=== PATIENT | female | born 1990 | race Caucasian/White ===

== ENCOUNTER → 2018-01-05 10:54 | Outpatient (CLI) | payer SELFPAY ==
[2018-01-05 12:29] LABS: Hematocrit 43.1 % (37-47); Hemoglobin 15.2 g/dl (12.0-15.0); Mean Corp Hgb Conc 35.3 g/gl (32-36); Mean Corpuscular Hgb 30.9 pg (27.0-32.0); Mean Corpuscular Volume 87.6 fL (81-99); Mean Platelet Vol. 10.4 fl (6.2-12.0); Platelet Count 292 K/mm3 (150-450); RBC Distribution Width CV 12.7 % (11.6-14.6); RBC Distribution Width SD 40.2 fl (35.1-43.9); Red Blood Count 4.92 M/mm3 (4.2-5.4); White Blood Count 8.3 K/mm3 (4.4-11.0)
[2018-01-05 12:34] LABS: Scan Indicated on CBC? Y/N NO
[2018-01-05 12:54] LABS: AST(SGOT) 10 U/L (15-37); Alanine Aminotransfer ALT/SGPT 13 U/L (13-56); Albumin, Serum 3.8 g/dL (3.2-5.0); Alkaline Phosphatase 51 U/L (45-117); Anion Gap 5 (5-15); BUN 14 mg/dL (7-18); BUN/Creat Ratio 24.8 RATIO (10-20); Calcium,Total 8.6 mg/dL (8.5-10.1); Chloride 104 mmol/L (98-107); Creatinine, Serum 0.56 mg/dL (0.55-1.02); EST Glomerular Filtration Rate 136 mL/min (>60); Est Glom Filt Rate - Afr Amer 165 mL/min (>60); Globulin 3.8 g/dL (2.2-4.2); Glucose 75 mg/dL (74-106); Magnesium 1.9 mg/dL (1.6-2.6); Phosphorus 2.3 mg/dL (2.5-4.9); Potassium 3.9 mmol/L (3.5-5.1); Protein, Total 7.6 g/dL (6.4-8.2); Sodium Level 137 mmol/L (136-145)
[2018-01-08 12:12] LABS: KEPPRA (LEVETIRACETAM) 23.7 ug/mL (10.0-40.0)
== END ==
PROVIDERS: Visit Provider Nurse Practitioner Acute Care
DX: R56.9 Unspecified convulsions (principal)
CPT/HCPCS: 36415; 80053; 80177; 83735; 84100; 85027

== ENCOUNTER → 2019-03-03 | Outpatient (CLI) | payer SELFPAY ==
[2019-03-03 12:48] LABS: Absolute Lymphocyte Count 1.65 X10^3/ul (0.83-4.51); Absolute Neutrophil Count 4.1 X10^3/uL (2.0-7.7); Basophil# 0.03 X10^3/uL; Basophil% 0.5 % (0-1); Eosinophils% 1.6 % (0-5); Hematocrit 43.4 % (37-47); Lymphocyte # 1.65 X10^3/ul (4.0); Lymphocyte % 26.1 % (19-41); Mean Corp Hgb Conc 34.6 g/gl (32-36); Mean Corpuscular Hgb 30.6 pg (27.0-32.0); Mean Corpuscular Volume 88.6 fL (81-99); Monocyte# 0.44 X10^3/uL; Neutrophil # 4.07 X10^3/uL (2.7-7.7); Neutrophil % 64.5 % (47-70); Platelet Count 285 K/mm3 (150-450); RBC Distribution Width CV 12.5 % (11.6-14.6); RBC Distribution Width SD 40.1 fl (35.1-43.9); White Blood Count 6.3 K/mm3 (4.4-11.0)
[2019-03-03 12:51] LABS: POSITIVE COUNT NO; POSITIVE DIFFERENTIAL NO; POSITIVE MORPHOLOGY NO
[2019-03-03 13:17] LABS: ALB/GLOB Ratio 1.2 RATIO (0.9-2.4); AST(SGOT) 11 U/L (15-37); Alanine Aminotransfer ALT/SGPT 16 U/L (13-56); Albumin, Serum 4.1 g/dL (3.2-5.0); Alkaline Phosphatase 63 U/L (45-117); Anion Gap 4 (5-15); BUN 10 mg/dL (7-18); BUN/Creat Ratio 18.8 RATIO (10-20); Bilirubin, Direct 0.26 mg/dL (0.00-0.30); Calcium,Total 9.1 mg/dL (8.5-10.1); Chloride 106 mmol/L (98-107); Creatinine, Serum 0.53 mg/dL (0.55-1.02); EST Glomerular Filtration Rate 145 mL/min (>60); Est Glom Filt Rate - Afr Amer 175 mL/min (>60); Globulin 3.4 g/dL (2.2-4.2); Glucose 85 mg/dL (74-106); Potassium 3.8 mmol/L (3.5-5.1); Protein, Total 7.5 g/dL (6.4-8.2); Sodium Level 139 mmol/L (136-145)
== END | disposition home or self-care (01) ==
LOC: LAB 11:39
PROVIDERS: Referring Provider Nurse Practitioner Family; Visit Provider Nurse Practitioner Family
DX: R56.9 Unspecified convulsions (principal)
CPT/HCPCS: 36415; 80053; 80177; 82248; 85025

== ENCOUNTER → 2019-07-14 09:57 | Outpatient (CLI) | payer SELFPAY ==
[2019-07-14 10:59] LABS: AST(SGOT) 10 U/L (15-37); Alanine Aminotransfer ALT/SGPT 16 U/L (13-56); Alkaline Phosphatase 67 U/L (45-117); Bilirubin, Direct 0.27 mg/dL (0.00-0.30); Globulin 3.8 g/dL (2.2-4.2); Protein, Total 7.8 g/dL (6.4-8.2)
== END ==
PROVIDERS: Referring Provider Nurse Practitioner Family; Visit Provider Nurse Practitioner Family
DX: R56.9 Unspecified convulsions (principal); R79.89 Other specified abnormal findings of blood chemistry
CPT/HCPCS: 36415; 80076

== ENCOUNTER → 2019-09-10 11:32 | Outpatient (CLI) | payer SELFPAY ==
[2019-09-10 12:18] LABS: ALB/GLOB Ratio 1.1 RATIO (0.9-2.4); AST(SGOT) 7 U/L (15-37); Alanine Aminotransfer ALT/SGPT 19 U/L (13-56); Albumin, Serum 4.2 g/dL (3.2-5.0); Alkaline Phosphatase 64 U/L (45-117); Anion Gap 4 (5-15); BUN 11 mg/dL (7-18); BUN/Creat Ratio 20.5 RATIO (10-20); Calcium,Total 9.1 mg/dL (8.5-10.1); Chloride 104 mmol/L (98-107); Creatinine, Serum 0.54 mg/dL (0.55-1.02); EST Glomerular Filtration Rate 143 mL/min (>60); Est Glom Filt Rate - Afr Amer 173 mL/min (>60); Globulin 3.7 g/dL (2.2-4.2); Glucose 89 mg/dL (74-106); Potassium 4.2 mmol/L (3.5-5.1); Protein, Total 7.9 g/dL (6.4-8.2); Sodium Level 137 mmol/L (136-145)
[2019-09-14 11:37] LABS: KEPPRA (LEVETIRACETAM) 19.6 ug/mL (10.0-40.0)
== END ==
LOC: LAB.FUTURE 11:33 → LAB 10-04 08:14
PROVIDERS: Referring Provider Nurse Practitioner Family; Visit Provider Nurse Practitioner Family
DX: R56.9 Unspecified convulsions (principal)
CPT/HCPCS: 36415; 80053; 80177

== ENCOUNTER 2019-10-04 08:03 | Outpatient (RCR) | payer SELFPAY ==
[2019-10-04 09:12] LABS: ALB/GLOB Ratio 1.2 RATIO (0.9-2.4); AST(SGOT) 7 U/L (15-37); Alanine Aminotransfer ALT/SGPT 20 U/L (13-56); Albumin, Serum 4.1 g/dL (3.2-5.0); Alkaline Phosphatase 53 U/L (45-117); Anion Gap 6 (5-15); BUN 8 mg/dL (7-18); Calcium,Total 9.2 mg/dL (8.5-10.1); Chloride 105 mmol/L (98-107); EST Glomerular Filtration Rate 155 mL/min (>60); Est Glom Filt Rate - Afr Amer 188 mL/min (>60); Globulin 3.5 g/dL (2.2-4.2); Glucose 95 mg/dL (74-106); Potassium 3.7 mmol/L (3.5-5.1); Protein, Total 7.6 g/dL (6.4-8.2); Sodium Level 137 mmol/L (136-145)
[2019-10-06 11:10] LABS: KEPPRA (LEVETIRACETAM) 24.2 ug/mL (10.0-40.0)
== END 2019-10-04 18:00 | disposition home or self-care (01) ==
LOC: LAB 08:03
PROVIDERS: Referring Provider Nurse Practitioner Family; Visit Provider Nurse Practitioner Family
DX: R56.9 Unspecified convulsions (principal)
CPT/HCPCS: 36415; 80053; 80177

== ENCOUNTER 2019-11-05 10:59 | Outpatient (RCR) | payer SELFPAY ==
[2019-11-05 11:41] LABS: AST(SGOT) 10 U/L (15-37); Alanine Aminotransfer ALT/SGPT 16 U/L (13-56); Albumin, Serum 3.7 g/dL (3.2-5.0); Alkaline Phosphatase 50 U/L (45-117); Anion Gap 5 (5-15); BUN 6 mg/dL (7-18); BUN/Creat Ratio 10.3 RATIO (10-20); Chloride 107 mmol/L (98-107); Creatinine, Serum 0.58 mg/dL (0.55-1.02); EST Glomerular Filtration Rate 130 mL/min (>60); Est Glom Filt Rate - Afr Amer 157 mL/min (>60); Globulin 3.8 g/dL (2.2-4.2); Glucose 87 mg/dL (74-106); Protein, Total 7.5 g/dL (6.4-8.2); Sodium Level 138 mmol/L (136-145)
[2019-11-08 12:36] LABS: KEPPRA (LEVETIRACETAM) 22.5 ug/mL (10.0-40.0)
== END 2019-11-05 18:00 | disposition home or self-care (01) ==
LOC: LAB 10:59
PROVIDERS: Referring Provider Nurse Practitioner Family; Visit Provider Nurse Practitioner Family
DX: R56.9 Unspecified convulsions (principal)
CPT/HCPCS: 36415; 80053; 80177

== ENCOUNTER 2019-12-03 10:52 | Outpatient (RCR) | payer SELFPAY ==
[2019-12-03 11:53] LABS: ALB/GLOB Ratio 0.9 RATIO (0.9-2.4); AST(SGOT) 15 U/L (15-37); Alanine Aminotransfer ALT/SGPT 23 U/L (13-56); Albumin, Serum 3.4 g/dL (3.2-5.0); Alkaline Phosphatase 49 U/L (45-117); Anion Gap 7 (5-15); BUN 8 mg/dL (7-18); BUN/Creat Ratio 18.8 RATIO (10-20); Calcium,Total 8.7 mg/dL (8.5-10.1); Chloride 104 mmol/L (98-107); Creatinine, Serum 0.43 mg/dL (0.55-1.02); EST Glomerular Filtration Rate 186 mL/min (>60); Est Glom Filt Rate - Afr Amer 225 mL/min (>60); Globulin 3.7 g/dL (2.2-4.2); Glucose 88 mg/dL (74-106); Potassium 3.7 mmol/L (3.5-5.1); Protein, Total 7.1 g/dL (6.4-8.2); Sodium Level 138 mmol/L (136-145)
[2019-12-08 11:56] LABS: KEPPRA (LEVETIRACETAM) 23.4 ug/mL (10.0-40.0)
== END 2019-12-03 18:00 | disposition home or self-care (01) ==
LOC: LAB 10:52
PROVIDERS: Referring Provider Nurse Practitioner Family; Visit Provider Nurse Practitioner Family
DX: R56.9 Unspecified convulsions (principal)
CPT/HCPCS: 36415; 80053; 80177

== ENCOUNTER 2019-12-31 10:21 | Outpatient (RCR) | payer SELFPAY ==
[2019-12-31 11:33] LABS: ALB/GLOB Ratio 0.9 RATIO (0.9-2.4); AST(SGOT) 12 U/L (15-37); Alanine Aminotransfer ALT/SGPT 19 U/L (13-56); Albumin, Serum 3.4 g/dL (3.2-5.0); Alkaline Phosphatase 52 U/L (45-117); Anion Gap 6 (5-15); BUN 7 mg/dL (7-18); BUN/Creat Ratio 18.6 RATIO (10-20); Calcium,Total 8.6 mg/dL (8.5-10.1); Chloride 108 mmol/L (98-107); Creatinine, Serum 0.38 mg/dL (0.55-1.02); EST Glomerular Filtration Rate 215 mL/min (>60); Est Glom Filt Rate - Afr Amer 260 mL/min (>60); Globulin 3.7 g/dL (2.2-4.2); Glucose 82 mg/dL (74-106); Potassium 3.7 mmol/L (3.5-5.1); Protein, Total 7.1 g/dL (6.4-8.2); Sodium Level 139 mmol/L (136-145)
[2020-01-02 14:01] LABS: KEPPRA (LEVETIRACETAM) 19.9 ug/mL (10.0-40.0)
== END 2020-01-05 18:00 | disposition home or self-care (01) ==
LOC: LAB 10:21
PROVIDERS: Referring Provider Nurse Practitioner Family; Visit Provider Nurse Practitioner Family
DX: R56.9 Unspecified convulsions (principal)
CPT/HCPCS: 80053; 80177

== ENCOUNTER 2020-01-28 11:37 | Outpatient (RCR) | payer SELFPAY ==
[2020-01-28 12:24] LABS: ALB/GLOB Ratio 0.8 RATIO (0.9-2.4); AST(SGOT) 13 U/L (15-37); Alanine Aminotransfer ALT/SGPT 24 U/L (13-56); Albumin, Serum 3.1 g/dL (3.2-5.0); Alkaline Phosphatase 62 U/L (45-117); Anion Gap 6 (5-15); BUN 7 mg/dL (7-18); BUN/Creat Ratio 18.1 RATIO (10-20); Chloride 107 mmol/L (98-107); Creatinine, Serum 0.39 mg/dL (0.55-1.02); EST Glomerular Filtration Rate 208 mL/min (>60); Est Glom Filt Rate - Afr Amer 252 mL/min (>60); Globulin 3.9 g/dL (2.2-4.2); Glucose 90 mg/dL (74-106); Potassium 3.6 mmol/L (3.5-5.1); Sodium Level 139 mmol/L (136-145)
== END 2020-01-28 18:00 | disposition home or self-care (01) ==
LOC: LAB 11:37
PROVIDERS: Referring Provider Nurse Practitioner Family; Visit Provider Nurse Practitioner Family
DX: R56.9 Unspecified convulsions (principal)
CPT/HCPCS: 36415; 80053

== ENCOUNTER 2020-02-25 10:51 | Outpatient (RCR) | payer SELFPAY ==
[2020-02-18 12:38] LABS: KEPPRA (LEVETIRACETAM) 23.7 ug/mL (10.0-40.0)
[2020-02-25 11:54] LABS: ALB/GLOB Ratio 0.8 RATIO (0.9-2.4); AST(SGOT) 13 U/L (15-37); Alanine Aminotransfer ALT/SGPT 24 U/L (13-56); Albumin, Serum 3.1 g/dL (3.2-5.0); Alkaline Phosphatase 71 U/L (45-117); Anion Gap 6 (5-15); BUN 6 mg/dL (7-18); BUN/Creat Ratio 15.5 RATIO (10-20); Calcium,Total 8.9 mg/dL (8.5-10.1); Chloride 106 mmol/L (98-107); Creatinine, Serum 0.39 mg/dL (0.55-1.02); EST Glomerular Filtration Rate 208 mL/min (>60); Est Glom Filt Rate - Afr Amer 251 mL/min (>60); Glucose 75 mg/dL (74-106); Potassium 3.6 mmol/L (3.5-5.1); Protein, Total 7.1 g/dL (6.4-8.2); Sodium Level 138 mmol/L (136-145)
[2020-02-28 04:51] LABS: KEPPRA (LEVETIRACETAM) 21.7 ug/mL (10.0-40.0)
== END 2020-02-25 18:00 | disposition home or self-care (01) ==
LOC: LAB 10:51
PROVIDERS: Referring Provider Nurse Practitioner Family; Visit Provider Nurse Practitioner Family
DX: R56.9 Unspecified convulsions (principal)
CPT/HCPCS: 36415; 80053; 80177

== ENCOUNTER 2020-04-11 14:44 | Outpatient (RCR) | payer SELFPAY ==
[2020-04-11 16:08] LABS: ALB/GLOB Ratio 0.8 RATIO (0.9-2.4); AST(SGOT) 19 U/L (15-37); Alanine Aminotransfer ALT/SGPT 36 U/L (13-56); Albumin, Serum 3.2 g/dL (3.2-5.0); Alkaline Phosphatase 109 U/L (45-117); Anion Gap 6 (5-15); BUN 9 mg/dL (7-18); BUN/Creat Ratio 19.7 RATIO (10-20); Calcium,Total 9.1 mg/dL (8.5-10.1); Chloride 108 mmol/L (98-107); Creatinine, Serum 0.46 mg/dL (0.55-1.02); EST Glomerular Filtration Rate 171 mL/min (>60); Est Glom Filt Rate - Afr Amer 207 mL/min (>60); Globulin 4.1 g/dL (2.2-4.2); Glucose 76 mg/dL (74-106); Potassium 3.6 mmol/L (3.5-5.1); Protein, Total 7.3 g/dL (6.4-8.2); Sodium Level 138 mmol/L (136-145)
[2020-04-18 03:19] LABS: KEPPRA (LEVETIRACETAM) 11.7 ug/mL (10.0-40.0)
== END 2020-05-07 18:00 | disposition home or self-care (01) ==
LOC: LAB 14:44
PROVIDERS: Referring Provider Nurse Practitioner Family; Visit Provider Nurse Practitioner Family
DX: R56.9 Unspecified convulsions (principal)
CPT/HCPCS: 80053; 80177

== ENCOUNTER 2020-05-09 10:45 | Outpatient (RCR) | payer SELFPAY ==
[2020-05-09 11:24] LABS: ALB/GLOB Ratio 0.7 RATIO (0.9-2.4); AST(SGOT) 16 U/L (15-37); Alanine Aminotransfer ALT/SGPT 27 U/L (13-56); Alkaline Phosphatase 136 U/L (45-117); Anion Gap 5 (5-15); BUN 7 mg/dL (7-18); BUN/Creat Ratio 16.1 RATIO (10-20); Calcium,Total 8.9 mg/dL (8.5-10.1); Chloride 107 mmol/L (98-107); Creatinine, Serum 0.44 mg/dL (0.55-1.02); EST Glomerular Filtration Rate 181 mL/min (>60); Est Glom Filt Rate - Afr Amer 219 mL/min (>60); Globulin 4.1 g/dL (2.2-4.2); Glucose 85 mg/dL (74-106); Potassium 3.8 mmol/L (3.5-5.1); Protein, Total 7.1 g/dL (6.4-8.2); Sodium Level 137 mmol/L (136-145)
[2020-05-12 10:35] LABS: KEPPRA (LEVETIRACETAM) 20.1 ug/mL (10.0-40.0)
== END 2020-05-09 18:00 | disposition home or self-care (01) ==
LOC: LAB 10:45
PROVIDERS: Referring Provider Nurse Practitioner Family; Visit Provider Nurse Practitioner Family
DX: R56.9 Unspecified convulsions (principal)
CPT/HCPCS: 36415; 80053; 80177

== ENCOUNTER 2020-06-15 11:50 | Outpatient (RCR) | payer SELFPAY ==
[2020-06-15 12:56] LABS: ALB/GLOB Ratio 1.1 RATIO (0.9-2.4); AST(SGOT) 13 U/L (15-37); Alanine Aminotransfer ALT/SGPT 21 U/L (13-56); Alkaline Phosphatase 66 U/L (45-117); Anion Gap 3 (5-15); BUN 9 mg/dL (7-18); BUN/Creat Ratio 17.5 RATIO (10-20); Calcium,Total 9.3 mg/dL (8.5-10.1); Chloride 103 mmol/L (98-107); Creatinine, Serum 0.51 mg/dL (0.55-1.02); EST Glomerular Filtration Rate 150 mL/min (>60); Est Glom Filt Rate - Afr Amer 181 mL/min (>60); Globulin 3.5 g/dL (2.2-4.2); Glucose 92 mg/dL (74-106); Potassium 3.8 mmol/L (3.5-5.1); Protein, Total 7.5 g/dL (6.4-8.2); Sodium Level 135 mmol/L (136-145)
[2020-06-19 08:06] LABS: KEPPRA (LEVETIRACETAM) 20.1 ug/mL (10.0-40.0)
== END 2020-06-15 18:00 | disposition home or self-care (01) ==
LOC: LAB 11:50
PROVIDERS: Referring Provider Nurse Practitioner Family; Visit Provider Nurse Practitioner Family
DX: R56.9 Unspecified convulsions (principal)
CPT/HCPCS: 36415; 80053; 80177

== ENCOUNTER 2021-10-07 11:21 | Outpatient (CLI) | payer SELFPAY ==
[2021-10-07 12:23] LABS: AST(SGOT) 8 U/L (15-37); Alanine Aminotransfer ALT/SGPT 18 U/L (13-56); Albumin, Serum 3.9 g/dL (3.2-5.0); Alkaline Phosphatase 70 U/L (45-117); Anion Gap 5 (5-15); BUN 7 mg/dL (7-18); BUN/Creat Ratio 14.4 RATIO (10-20); Calcium,Total 8.6 mg/dL (8.5-10.1); Chloride 102 mmol/L (98-107); Creatinine, Serum 0.49 mg/dL (0.55-1.02); EST Glomerular Filtration Rate 158 mL/min (>60); Est Glom Filt Rate - Afr Amer 191 mL/min (>60); Glucose 95 mg/dL (74-106); Potassium 3.8 mmol/L (3.5-5.1); Protein, Total 7.9 g/dL (6.4-8.2); Sodium Level 135 mmol/L (136-145)
[2021-10-10 13:06] LABS: KEPPRA (LEVETIRACETAM) 18.8 ug/mL (10.0-40.0)
== END 2021-10-07 23:59 | disposition short-term general hospital (02) ==
LOC: LAB 11:23
PROVIDERS: Visit Provider Nurse Practitioner Family
DX: R56.9 Unspecified convulsions (principal)
CPT/HCPCS: 36415; 80053; 80177

== ENCOUNTER 2021-11-13 11:03 | Outpatient (CLI) | payer SELFPAY ==
[2021-11-16 09:19] LABS: KEPPRA (LEVETIRACETAM) 19.8 ug/mL (10.0-40.0)
== END 2021-11-13 23:59 | disposition home or self-care (01) ==
LOC: LAB 11:03
PROVIDERS: Referring Provider Psychiatry & Neurology Neurology; Visit Provider Psychiatry & Neurology Neurology
DX: R56.9 Unspecified convulsions (principal)
CPT/HCPCS: 36415; 80177

== ENCOUNTER 2021-12-10 09:58 | Outpatient (RCR) | payer SELFPAY ==
[2021-12-10 11:01] LABS: ALB/GLOB Ratio 0.9 RATIO (0.9-2.4); AST(SGOT) 12 U/L (15-37); Alanine Aminotransfer ALT/SGPT 18 U/L (13-56); Albumin, Serum 3.6 g/dL (3.2-5.0); Alkaline Phosphatase 57 U/L (45-117); Anion Gap 4 (5-15); BUN 6 mg/dL (7-18); BUN/Creat Ratio 11.5 RATIO (10-20); Calcium,Total 8.9 mg/dL (8.5-10.1); Chloride 105 mmol/L (98-107); Creatinine, Serum 0.52 mg/dL (0.55-1.02); EST Glomerular Filtration Rate 145 mL/min (>60); Est Glom Filt Rate - Afr Amer 175 mL/min (>60); Globulin 3.8 g/dL (2.2-4.2); Glucose 102 mg/dL (74-106); Potassium 3.6 mmol/L (3.5-5.1); Protein, Total 7.4 g/dL (6.4-8.2); Sodium Level 134 mmol/L (136-145)
== END 2021-12-10 18:00 | disposition home or self-care (01) ==
LOC: LAB 09:58
PROVIDERS: Referring Provider Nurse Practitioner Family; Visit Provider Nurse Practitioner Family
DX: R56.9 Unspecified convulsions (principal); Z33.1 Pregnant state, incidental
CPT/HCPCS: 36415; 80053; 80177

== ENCOUNTER 2022-01-08 16:13 | Outpatient (RCR) | payer SELFPAY ==
[2022-01-08 12:27] LABS: ALB/GLOB Ratio 0.9 RATIO (0.9-2.4); AST(SGOT) 19 U/L (15-37); Alanine Aminotransfer ALT/SGPT 35 U/L (13-56); Albumin, Serum 3.3 g/dL (3.2-5.0); Alkaline Phosphatase 71 U/L (45-117); Anion Gap 6 (5-15); BUN 3 mg/dL (7-18); BUN/Creat Ratio 5.4 RATIO (10-20); Calcium,Total 8.9 mg/dL (8.5-10.1); Chloride 106 mmol/L (98-107); Creatinine, Serum 0.56 mg/dL (0.55-1.02); EST Glomerular Filtration Rate 134 mL/min (>60); Est Glom Filt Rate - Afr Amer 163 mL/min (>60); Globulin 3.8 g/dL (2.2-4.2); Glucose 90 mg/dL (74-106); Potassium 3.6 mmol/L (3.5-5.1); Protein, Total 7.1 g/dL (6.4-8.2); Sodium Level 138 mmol/L (136-145)
[2022-01-14 16:43] LABS: KEPPRA (LEVETIRACETAM) 21.1 ug/mL (10.0-40.0)
== END 2022-01-08 18:00 | disposition home or self-care (01) ==
LOC: LAB 16:13
PROVIDERS: Referring Provider Nurse Practitioner Family; Visit Provider Nurse Practitioner Family
DX: R56.9 Unspecified convulsions (principal); O99.352 Diseases of the nervous system complicating pregnancy, second trimester; Z3A.00 Weeks of gestation of pregnancy not specified
CPT/HCPCS: 36415; 80053; 80177

== ENCOUNTER 2022-02-12 10:40 | Outpatient (RCR) | payer SELFPAY ==
[2022-02-12 13:06] LABS: ALB/GLOB Ratio 0.8 RATIO (0.9-2.4); AST(SGOT) 9 U/L (15-37); Alanine Aminotransfer ALT/SGPT 16 U/L (13-56); Albumin, Serum 3.1 g/dL (3.2-5.0); Alkaline Phosphatase 70 U/L (45-117); Anion Gap 6 (5-15); BUN 9 mg/dL (7-18); BUN/Creat Ratio 21.4 RATIO (10-20); Chloride 106 mmol/L (98-107); Creatinine, Serum 0.42 mg/dL (0.55-1.02); EST Glomerular Filtration Rate 186 mL/min (>60); Est Glom Filt Rate - Afr Amer 225 mL/min (>60); Globulin 3.8 g/dL (2.2-4.2); Glucose 86 mg/dL (74-106); Potassium 3.9 mmol/L (3.5-5.1); Protein, Total 6.9 g/dL (6.4-8.2); Sodium Level 137 mmol/L (136-145)
[2022-02-17 19:24] LABS: KEPPRA (LEVETIRACETAM) 23.2 ug/mL (10.0-40.0)
== END 2022-02-12 23:59 | disposition home or self-care (01) ==
LOC: LAB 10:40
PROVIDERS: Referring Provider Nurse Practitioner Family; Visit Provider Nurse Practitioner Family
DX: O99.352 Diseases of the nervous system complicating pregnancy, second trimester (principal); R56.9 Unspecified convulsions; Z3A.00 Weeks of gestation of pregnancy not specified
CPT/HCPCS: 36415; 80053; 80177

== ENCOUNTER 2022-03-18 11:53 | Outpatient (RCR) | payer SELFPAY ==
[2022-03-18 13:32] LABS: ALB/GLOB Ratio 0.8 RATIO (0.9-2.4); AST(SGOT) 13 U/L (15-37); Alanine Aminotransfer ALT/SGPT 19 U/L (13-56); Alkaline Phosphatase 82 U/L (45-117); Anion Gap 8 (5-15); BUN 6 mg/dL (7-18); BUN/Creat Ratio 14.9 RATIO (10-20); Calcium,Total 9.2 mg/dL (8.5-10.1); Chloride 105 mmol/L (98-107); EST Glomerular Filtration Rate 196 mL/min (>60); Est Glom Filt Rate - Afr Amer 237 mL/min (>60); Globulin 3.9 g/dL (2.2-4.2); Glucose 89 mg/dL (74-106); Potassium 3.6 mmol/L (3.5-5.1); Protein, Total 6.9 g/dL (6.4-8.2); Sodium Level 137 mmol/L (136-145)
[2022-03-22 21:19] LABS: KEPPRA (LEVETIRACETAM) 17.2 ug/mL (10.0-40.0)
== END 2022-04-06 03:12 | disposition home or self-care (01) ==
LOC: LAB 11:53
PROVIDERS: Referring Provider Nurse Practitioner Family; Visit Provider Nurse Practitioner Family
DX: O99.352 Diseases of the nervous system complicating pregnancy, second trimester (principal); R56.9 Unspecified convulsions; Z3A.00 Weeks of gestation of pregnancy not specified
CPT/HCPCS: 36415; 80053; 80177

== ENCOUNTER 2022-04-10 11:03 | Outpatient (RCR) | payer SELFPAY ==
[2022-04-10 12:07] LABS: ALB/GLOB Ratio 0.8 RATIO (0.9-2.4); AST(SGOT) 12 U/L (15-37); Alanine Aminotransfer ALT/SGPT 23 U/L (13-56); Albumin, Serum 3.1 g/dL (3.2-5.0); Alkaline Phosphatase 89 U/L (45-117); Anion Gap 7 (5-15); BUN 7 mg/dL (7-18); BUN/Creat Ratio 14.7 RATIO (10-20); Calcium,Total 8.7 mg/dL (8.5-10.1); Chloride 105 mmol/L (98-107); Creatinine, Serum 0.48 mg/dL (0.55-1.02); EST Glomerular Filtration Rate 161 mL/min (>60); Est Glom Filt Rate - Afr Amer 195 mL/min (>60); Globulin 4.1 g/dL (2.2-4.2); Glucose 96 mg/dL (74-106); Potassium 3.9 mmol/L (3.5-5.1); Protein, Total 7.2 g/dL (6.4-8.2); Sodium Level 137 mmol/L (136-145)
[2022-04-14 16:54] LABS: KEPPRA (LEVETIRACETAM) 16.3 ug/mL (10.0-40.0)
== END 2022-04-10 18:00 | disposition home or self-care (01) ==
LOC: LAB 11:03
PROVIDERS: Referring Provider Nurse Practitioner Family; Visit Provider Nurse Practitioner Family
DX: O99.352 Diseases of the nervous system complicating pregnancy, second trimester (principal); Z3A.00 Weeks of gestation of pregnancy not specified; G40.909 Epilepsy, unspecified, not intractable, without status epilepticus
CPT/HCPCS: 36415; 80053; 80177

== ENCOUNTER 2022-05-24 11:05 | Outpatient (RCR) | payer SELFPAY ==
[2022-05-24 12:37] LABS: ALB/GLOB Ratio 0.9 RATIO (0.9-2.4); AST(SGOT) 11 U/L (15-37); Alanine Aminotransfer ALT/SGPT 23 U/L (13-56); Albumin, Serum 3.5 g/dL (3.2-5.0); Alkaline Phosphatase 100 U/L (45-117); Anion Gap 7 (5-15); BUN 11 mg/dL (7-18); BUN/Creat Ratio 20.4 RATIO (10-20); Calcium,Total 9.2 mg/dL (8.5-10.1); Chloride 105 mmol/L (98-107); Creatinine, Serum 0.54 mg/dL (0.55-1.02); EST Glomerular Filtration Rate 140 mL/min (>60); Est Glom Filt Rate - Afr Amer 169 mL/min (>60); Globulin 3.9 g/dL (2.2-4.2); Glucose 92 mg/dL (74-106); Potassium 4.1 mmol/L (3.5-5.1); Protein, Total 7.4 g/dL (6.4-8.2); Sodium Level 140 mmol/L (136-145)
[2022-05-29 08:24] LABS: KEPPRA (LEVETIRACETAM) 26.1 ug/mL (10.0-40.0)
== END 2022-05-24 18:00 | disposition home or self-care (01) ==
LOC: LAB 11:05
PROVIDERS: Referring Provider Nurse Practitioner Family; Visit Provider Nurse Practitioner Family
DX: O99.352 Diseases of the nervous system complicating pregnancy, second trimester (principal); G40.909 Epilepsy, unspecified, not intractable, without status epilepticus; Z3A.00 Weeks of gestation of pregnancy not specified
CPT/HCPCS: 36415; 80053; 80177